=== PATIENT | male | born 1955 | race Caucasian/White ===

== ENCOUNTER → 2023-08-14 | Outpatient (REF) | payer MEDICARE ==
[2023-08-14 10:18] LABS: BASOPHILS % 0.6 % (0.0-1.0); EOSINOPHILS # (AUTO) 0.1 (0.0-0.4); EOSINOPHILS % 2.1 % (0.0-6.0); HEMATOCRIT 33.3 % (38.2-49.6); HEMOGLOBIN 10.9 g/dL (14.0-18.0); LYMPHOCYTES % 28.8 % (18.0-39.1); MEAN CORPUSCULAR HEMOGLOBIN 26.6 pg (28-32); MEAN CORPUSCULAR HGB CONC 32.7 g/dL (31-35); MEAN CORPUSCULAR VOLUME 81.2 fL (81-99); MONOCYTES # (AUTO) 0.2 (0.2-0.8); MONOCYTES % 6.8 % (4.4-11.3); NEUTROPHILS # (AUTO) 2.1 (2.1-6.9); NEUTROPHILS % 61.4 % (38.7-80.0); RED CELL DISTRIBUTION WIDTH 16.5 % (11.7-14.4); WHITE BLOOD COUNT 3.37 x10e3/uL (4.8-10.8)
[2023-08-14 10:40] LABS: INR 3.07; PROTHROMBIN TIME 33.6 seconds (11.9-14.5)
[2023-08-14 10:47] LABS: PLATELET COUNT 75 x10e3/uL (140-360)
== END ==
LOC: US 09:25
PROVIDERS: ATTEND Nurse Practitioner Family
DX: R06.02 Shortness of breath (principal); J90 Pleural effusion, not elsewhere classified; I50.9 Heart failure, unspecified
CPT/HCPCS: 32555; 36415; 71045; 85025; 85610; 85730

== ENCOUNTER → 2023-08-23 | Outpatient (REF) | payer MEDICARE ==
[~2023-08-23] MED LIST: ALBUTEROL SULF 0.083% NEB SOLN 3 ML NEB NEB PRN; ALBUTEROL SULF 0.083% NEB SOLN 3 ML NEB NEB SCH
== END ==
LOC: RESP 08:49 → EDSTATUS 09:00
PROVIDERS: ATTEND Internal Medicine Critical Care Medicine
DX: R06.02 Shortness of breath (principal); J90 Pleural effusion, not elsewhere classified; I50.9 Heart failure, unspecified; R05.3 Chronic cough
CPT/HCPCS: 94060; 94640; 94727; 94729

== ENCOUNTER 2024-02-11 14:41 | Inpatient (IN) | payer MEDICARE ==
[~2024-02-11] VITALS: Ht 167.6 cm; Wt 95.3 kg
[2024-02-11 15:00] LABS: BASOPHILS % 0.4 % (0.0-1.0); EOSINOPHILS # (AUTO) 0.1 (0.0-0.4); EOSINOPHILS % 1.6 % (0.0-6.0); HEMATOCRIT 38.1 % (38.2-49.6); HEMOGLOBIN 12.5 g/dL (14.0-18.0); LYMPHOCYTES # (AUTO) 1.2 (1.0-3.2); LYMPHOCYTES % 24.9 % (18.0-39.1); MEAN CORPUSCULAR HEMOGLOBIN 29.1 pg (28-32); MEAN CORPUSCULAR HGB CONC 32.8 g/dL (31-35); MEAN CORPUSCULAR VOLUME 88.6 fL (81-99); MONOCYTES # (AUTO) 0.3 (0.2-0.8); MONOCYTES % 6.1 % (4.4-11.3); NEUTROPHILS # (AUTO) 3.3 (2.1-6.9); NEUTROPHILS % 66.8 % (38.7-80.0); PLATELET COUNT 91 x10e3/uL (140-360); WHITE BLOOD COUNT 4.93 x10e3/uL (4.8-10.8)
[2024-02-11 15:18] LABS: ANION GAP 18.3 mmol/L (8-16); BILIRUBIN,TOTAL 1.3 mg/dL (0.2-1.2); CALCIUM 9.6 mg/dL (8.4-10.2); CREATININE, SERUM 2.06 mg/dL (0.72-1.25); POTASSIUM 4.3 mmol/L (3.5-5.1); TOTAL PROTEIN 7.9 g/dL (6.5-8.1)
[2024-02-11 15:24] LABS: TROPONIN I 0.022 ng/mL (0-0.300)
[2024-02-11 16:05] LABS: INR 1.04; PROTHROMBIN TIME 13.8 seconds (11.9-14.5)
[2024-02-11] MEDS ORDERED: ONDANSETRON HCL INJ 2MG/ML 2ML 2 MG/ML VIAL IV PRN (16:30)
[2024-02-11 17:00] VITALS: PULSE 94; RESP 18; O2SAT 96
[2024-02-11 17:40] VITALS: BP 158/84; PULSE 95; RESP 21; TEMP 98.4; O2SAT 99
[2024-02-11 20:00] VITALS: BP 155/75; PULSE 85; RESP 18; TEMP 98.3; O2SAT 99
[2024-02-11] MEDS ORDERED: ACETAMINOPHEN 325 MG TAB PO PRN (21:15)
[2024-02-11] MEDS ORDERED: METOPROLOL TARTRATE INJ 1 MG/ML VIAL IV PRN (21:15)
[2024-02-11] MEDS ORDERED: POLYETHYLENE GLYCOL 3350 17 GM PACK PO PRN (21:15)
[2024-02-11] MEDS ORDERED: PLAVIX75 MG PO (21:20)
[2024-02-11] MEDS ORDERED: FINASTERIDE5 MG PO (21:20)
[2024-02-11] MEDS ORDERED: NEURONTIN100 MG PO (21:20)
[2024-02-11] MEDS ORDERED: ALLOPURINOL300 MG PO (21:20)
[2024-02-11] MEDS ORDERED: FLOMAX0.4 MG PO (21:20)
[2024-02-11] MEDS ORDERED: ASPIRIN81 MG PO (21:20)
[2024-02-11] MEDS ORDERED: GLIPIZIDE5 MG PO (21:20)
[2024-02-11] MEDS ORDERED: FUROSEMIDE40 MG PO (21:20)
[2024-02-11] MEDS ORDERED: LISINOPRIL5 MG PO (21:20)
[2024-02-11 21:45] VITALS: BP 155/75; PULSE 85; RESP 18; TEMP 98.3; O2SAT 99
[2024-02-12] VITALS: BP 159/78; PULSE 80; RESP 18; TEMP 98.2; O2SAT 98
[2024-02-12 02:05] LABS: TROPONIN I 0.025 ng/mL (0-0.300)
[2024-02-12 04:00] VITALS: BP 155/71; PULSE 83; RESP 18; TEMP 98.6; O2SAT 99
[2024-02-12 05:40] LABS: BASOPHILS % 0.7 % (0.0-1.0); EOSINOPHILS # (AUTO) 0.1 (0.0-0.4); EOSINOPHILS % 2.4 % (0.0-6.0); HEMATOCRIT 34.1 % (38.2-49.6); HEMOGLOBIN 11.3 g/dL (14.0-18.0); LYMPHOCYTES # (AUTO) 1.3 (1.0-3.2); LYMPHOCYTES % 24.3 % (18.0-39.1); MEAN CORPUSCULAR HEMOGLOBIN 29.5 pg (28-32); MEAN CORPUSCULAR HGB CONC 33.1 g/dL (31-35); MONOCYTES # (AUTO) 0.4 (0.2-0.8); NEUTROPHILS # (AUTO) 3.6 (2.1-6.9); NEUTROPHILS % 64.4 % (38.7-80.0); PLATELET COUNT 92 x10e3/uL (140-360); RED BLOOD COUNT 3.83 x10e6/uL (4.3-5.7); RED CELL DISTRIBUTION WIDTH 14.8 % (11.7-14.4); WHITE BLOOD COUNT 5.51 x10e3/uL (4.8-10.8)
[2024-02-12 06:16] LABS: ALBUMIN 3.3 g/dL (3.5-5.0); ANION GAP 14.9 mmol/L (8-16); BILIRUBIN,TOTAL 1.1 mg/dL (0.2-1.2); CALCIUM 8.9 mg/dL (8.4-10.2); CREATININE, SERUM 2.07 mg/dL (0.72-1.25); POTASSIUM 3.9 mmol/L (3.5-5.1); TOTAL PROTEIN 6.6 g/dL (6.5-8.1)
[2024-02-12 06:35] LABS: CHOL/HDL RATIO 4.6 (3.9-4.7); PHOSPHORUS 3.2 MG/DL (2.3-4.7)
[2024-02-12 06:58] LABS: FREE T4 (FREE THYROXINE) 1.1 ng/dL (0.8-1.8); THYROID STIMULATING HORMONE 1.202 uIU/mL (0.350-4.940)
[2024-02-12 07:05] LABS: TROPONIN I 0.024 ng/mL (0-0.300)
[2024-02-12 07:10] VITALS: PULSE 84; RESP 18; O2SAT 95
[2024-02-12] MEDS ORDERED: FAMOTIDINE 20 MG TAB PO SCH (07:30)
[2024-02-12 08:00] VITALS: BP 153/75; PULSE 82; RESP 18; TEMP 98.3; O2SAT 96
[2024-02-12] MEDS: SODIUM CHLORIDE 0.9% 250ML 250 ML ONE (08:53)
[2024-02-12] MEDS: LISINOPRIL 2.5 MG TAB PO SCH (11:44)
[2024-02-12] MEDS: FINASTERIDE 5 MG TAB PO SCH (11:45)
[2024-02-12] MEDS: ASPIRIN 81 MG CHEW TAB PO SCH (11:45)
[2024-02-12] MEDS: GLIPIZIDE 5 MG TAB PO SCH (11:45)
[2024-02-12] MEDS: DOCUSATE SODIUM 100 MG CAP PO SCH (11:45)
[2024-02-12] MEDS: TAMSULOSIN HCL 0.4 MG CAP PO SCH (11:45)
[2024-02-12] MEDS: GABAPENTIN 100 MG CAP PO SCH (11:45)
[2024-02-12] MEDS: FUROSEMIDE 40 MG TAB PO SCH (11:45)
[2024-02-12] MEDS: FAMOTIDINE 20 MG TAB PO SCH (11:46)
[2024-02-12] MEDS: ALLOPURINOL 300 MG TAB PO SCH (11:46)
[2024-02-12] MEDS: CLOPIDOGREL BISULFATE 75 MG TAB PO SCH (11:46)
[2024-02-12 12:00] VITALS: BP 166/73; PULSE 89; RESP 21; TEMP 97.9; O2SAT 100
[2024-02-12] MEDS ORDERED: ONDANSETRON HCL 4 MG ORAL DISINTEGRATING TAB PO PRN (13:15)
[2024-02-12] MEDS ORDERED: AZITHROMYCIN 250 MG TAB PO SCH (14:00)
== END 2024-02-12 13:35 | disposition home or self-care (01) | DRG 291 ==
LOC: ER 14:53 → ERHOLD 16:26 → MED/SURG2 18:13
PROVIDERS: ADMIT Internal Medicine; ATTEND Internal Medicine
PROC: 0W993ZX Drainage of Right Pleural Cavity, Percutaneous Approach, Diagnostic (ICD-10-PCS; principal; 2024-02-11)
DX: I13.0 Hypertensive heart and chronic kidney disease with heart failure and stage 1 through stage 4 chronic kidney disease, or unspecified chronic kidney disease (principal); I50.31 Acute diastolic (congestive) heart failure; J90 Pleural effusion, not elsewhere classified; I48.91 Unspecified atrial fibrillation; Z95.820 Peripheral vascular angioplasty status with implants and grafts; E66.9 Obesity, unspecified; N28.9 Disorder of kidney and ureter, unspecified; Z11.52 Encounter for screening for COVID-19; E11.40 Type 2 diabetes mellitus with diabetic neuropathy, unspecified; E11.22 Type 2 diabetes mellitus with diabetic chronic kidney disease; N18.30 Chronic kidney disease, stage 3 unspecified; Z82.49 Family history of ischemic heart disease and other diseases of the circulatory system; Z83.3 Family history of diabetes mellitus; Z88.8 Allergy status to other drugs, medicaments and biological substances; Z79.84 Long term (current) use of oral hypoglycemic drugs; Z79.82 Long term (current) use of aspirin; Z79.02 Long term (current) use of antithrombotics/antiplatelets; I73.9 Peripheral vascular disease, unspecified; D69.6 Thrombocytopenia, unspecified; D63.1 Anemia in chronic kidney disease; R74.01 Elevation of levels of liver transaminase levels; E80.6 Other disorders of bilirubin metabolism; I44.0 Atrioventricular block, first degree; R53.1 Weakness
CPT/HCPCS: 32555; 36415; 71045; 74470; 76604; 80053; 80061; 82550; 82948; 83036; 83735; 83880; 84100; 84439; 84443; 84484; 85025; 85610; 87040; 87400; 93005; 94799; 99284; J0696; J7050; U0002

== ENCOUNTER 2024-03-31 13:29 | Outpatient (RCR) | payer MEDICARE ==
[~2024-03-31 13:29] MED LIST changes: -ALBUTEROL SULF 0.083% NEB SOLN 3 ML NEB NEB PRN; -ALBUTEROL SULF 0.083% NEB SOLN 3 ML NEB NEB SCH; +ALLOPURINOL300 MG PO; +ASPIRIN81 MG PO; +FINASTERIDE5 MG PO; +FLOMAX0.4 MG PO; +FUROSEMIDE40 MG PO; +GLIPIZIDE5 MG PO; +LISINOPRIL5 MG PO; +NEURONTIN100 MG PO; +PLAVIX75 MG PO
== END 2024-04-27 ==
LOC: RESP 13:29
PROVIDERS: ATTEND Family Medicine
DX: R06.02 Shortness of breath (principal); R60.9 Edema, unspecified; I10 Essential (primary) hypertension; I48.91 Unspecified atrial fibrillation
CPT/HCPCS: 94626 ×8; G0238 ×8

== ENCOUNTER 2024-04-28 13:51 | Outpatient (RCR) | payer MEDICARE | END 2024-05-28 | LOC: RESP 13:51 | PROVIDERS: ATTEND Family Medicine | DX: R06.02 Shortness of breath (principal); R60.9 Edema, unspecified; I10 Essential (primary) hypertension; I48.91 Unspecified atrial fibrillation | CPT/HCPCS: 94626 ×6; G0238 ×6 ==

== ENCOUNTER 2024-06-19 13:00 | Outpatient (RCR) | payer MEDICARE | END 2024-06-28 | LOC: RESP 13:00 | PROVIDERS: ATTEND Family Medicine | DX: R60.9 Edema, unspecified (principal); R06.02 Shortness of breath; I10 Essential (primary) hypertension; I48.91 Unspecified atrial fibrillation | CPT/HCPCS: 94626 ×5; G0238 ×5 ==

== ENCOUNTER → 2024-08-06 | Outpatient (REF) | payer MEDICARE | LOC: US 12:13 | PROVIDERS: ATTEND Internal Medicine Gastroenterology | DX: R74.8 Abnormal levels of other serum enzymes (principal) | CPT/HCPCS: 76705 ==

== ENCOUNTER → 2024-09-09 | Day surgery (SDC) | payer MEDICARE ==
[2024-09-03 16:02] LABS: BASOPHILS % 0.6 % (0.0-1.0); EOSINOPHILS # (AUTO) 0.2 (0.0-0.4); EOSINOPHILS % 3.4 % (0.0-6.0); HEMATOCRIT 37.5 % (38.2-49.6); HEMOGLOBIN 11.8 g/dL (14.0-18.0); LYMPHOCYTES # (AUTO) 1.2 (1.0-3.2); LYMPHOCYTES % 25.3 % (18.0-39.1); MEAN CORPUSCULAR HEMOGLOBIN 30.3 pg (28-32); MEAN CORPUSCULAR HGB CONC 31.5 g/dL (31-35); MEAN CORPUSCULAR VOLUME 96.4 fL (81-99); MONOCYTES # (AUTO) 0.3 (0.2-0.8); MONOCYTES % 5.9 % (4.4-11.3); NEUTROPHILS # (AUTO) 3.1 (2.1-6.9); NEUTROPHILS % 64.6 % (38.7-80.0); RED BLOOD COUNT 3.89 x10e6/uL (4.3-5.7); RED CELL DISTRIBUTION WIDTH 14.2 % (11.7-14.4); WHITE BLOOD COUNT 4.74 x10e3/uL (4.8-10.8)
[2024-09-03 16:09] LABS: PLATELET COUNT 72 x10e3/uL (140-360)
[~2024-09-09] MED LIST changes: +LIDOCAINE HCL 2% LOCAL INJ 5 ML SDV VIAL INJ ONE; +PROPOFOL IV EMULSION 10 MG/ML 20 ML VIAL ONE
[2024-09-09] MEDS: LACTATED RINGER'S 1,000 ML ONE (10:15)
[2024-09-09 12:56] VITALS: TEMP 97
[2024-09-09 13:30] VITALS: BP 156/85; PULSE 70; RESP 18; O2SAT 97
== END | disposition home or self-care (01) ==
LOC: OR 10:07
PROVIDERS: ATTEND Internal Medicine Gastroenterology
DX: Z12.11 Encounter for screening for malignant neoplasm of colon (principal); D12.0 Benign neoplasm of cecum; D12.2 Benign neoplasm of ascending colon; D12.4 Benign neoplasm of descending colon; K52.9 Noninfective gastroenteritis and colitis, unspecified; K57.30 Diverticulosis of large intestine without perforation or abscess without bleeding; K62.5 Hemorrhage of anus and rectum; K59.00 Constipation, unspecified; K64.8 Other hemorrhoids; G47.33 Obstructive sleep apnea (adult) (pediatric); D64.9 Anemia, unspecified; I48.91 Unspecified atrial fibrillation; I11.0 Hypertensive heart disease with heart failure; I50.9 Heart failure, unspecified; I44.0 Atrioventricular block, first degree; E11.9 Type 2 diabetes mellitus without complications; E66.01 Morbid (severe) obesity due to excess calories; N40.0 Benign prostatic hyperplasia without lower urinary tract symptoms; M10.9 Gout, unspecified; Z91.041 Radiographic dye allergy status; Z88.8 Allergy status to other drugs, medicaments and biological substances; Z01.810 Encounter for preprocedural cardiovascular examination; Z01.812 Encounter for preprocedural laboratory examination; Z79.82 Long term (current) use of aspirin; Z79.84 Long term (current) use of oral hypoglycemic drugs; Z79.899 Other long term (current) drug therapy; Z68.35 Body mass index [BMI] 35.0-35.9, adult
CPT/HCPCS: 36415 ×2; 45384; 45385; 82948; 85025; 88305; 93005; J2003; J2704; J7121

== ENCOUNTER 2024-09-18 12:46 | Observation (INO) | payer MEDICARE ==
[2024-09-18] VITALS (9 sets, daily range): BP systolic 131–170; BP diastolic 62–74; PULSE 80–85; RESP 18–20; TEMP 97.9–99.2; O2SAT 96–100
[~2024-09-18] VITALS: Ht 167.6 cm; Wt 92.5 kg
[~2024-09-18 12:46] MED LIST changes: -LIDOCAINE HCL 2% LOCAL INJ 5 ML SDV VIAL INJ ONE; -PROPOFOL IV EMULSION 10 MG/ML 20 ML VIAL ONE
[2024-09-18] MEDS ORDERED: SODIUM CHLORIDE FLUSH 10 ML SYR IV PRN (13:00)
[2024-09-18 13:06] LABS: BASOPHILS % 0.6 % (0.0-1.0); EOSINOPHILS # (AUTO) 0.1 (0.0-0.4); EOSINOPHILS % 1.5 % (0.0-6.0); HEMOGLOBIN 12.6 g/dL (14.0-18.0); LYMPHOCYTES # (AUTO) 0.9 (1.0-3.2); LYMPHOCYTES % 17.6 % (18.0-39.1); MEAN CORPUSCULAR HEMOGLOBIN 30.4 pg (28-32); MEAN CORPUSCULAR HGB CONC 31.5 g/dL (31-35); MEAN CORPUSCULAR VOLUME 96.6 fL (81-99); MONOCYTES # (AUTO) 0.3 (0.2-0.8); MONOCYTES % 5.2 % (4.4-11.3); NEUTROPHILS # (AUTO) 3.9 (2.1-6.9); NEUTROPHILS % 74.9 % (38.7-80.0); PLATELET COUNT 97 x10e3/uL (140-360); RED BLOOD COUNT 4.14 x10e6/uL (4.3-5.7); RED CELL DISTRIBUTION WIDTH 14.1 % (11.7-14.4); WHITE BLOOD COUNT 5.17 x10e3/uL (4.8-10.8)
[2024-09-18] MEDS: ASPIRIN 81 MG CHEW TAB PO ONE (13:10)
[2024-09-18 13:20] LABS: ALBUMIN 4.1 g/dL (3.5-5.0); ALBUMIN/GLOBULIN RATIO 1.1 (0.8-2.0); ANION GAP 19.8 mmol/L (8-16); BILIRUBIN,TOTAL 1.1 mg/dL (0.2-1.2); CALCIUM 9.5 mg/dL (8.4-10.2); CREATININE, SERUM 1.83 mg/dL (0.72-1.25); POTASSIUM 3.8 mmol/L (3.5-5.1); TOTAL PROTEIN 7.7 g/dL (6.5-8.1)
[2024-09-18 13:26] LABS: TROPONIN I 0.022 ng/mL (0-0.300)
[2024-09-18] MEDS ORDERED: ONDANSETRON HCL INJ 2MG/ML 2ML 2 MG/ML VIAL IV PRN (15:00)
[2024-09-18] MEDS ORDERED: SODIUM CHLORIDE FLUSH 10 ML SYR INJ PRN (15:00)
[2024-09-18] MEDS: FUROSEMIDE INJ 10 MG/ML 4 ML VIAL IV SCH (16:55)
[2024-09-18] MEDS ORDERED: DEXTROSE 50% SYRINGE 50 ML IV PRN (18:00)
[2024-09-18] MEDS: INSULIN LISPRO 100 UNIT/1 ML 3ML VIAL SQ SCH (21:55)
[2024-09-18 23:01] LABS: TROPONIN I 0.031 ng/mL (0-0.300)
[2024-09-19] VITALS (7 sets, daily range): BP systolic 138–172; BP diastolic 54–69; PULSE 60–81; RESP 17–20; TEMP 95.9–99; O2SAT 99–100
[2024-09-19] MEDS: ASPIRIN 81 MG CHEW TAB PO ONE (08:58)
[2024-09-19 09:00] LABS: BASOPHILS % 0.6 % (0.0-1.0); EOSINOPHILS # (AUTO) 0.1 (0.0-0.4); EOSINOPHILS % 2.4 % (0.0-6.0); HEMATOCRIT 37.4 % (38.2-49.6); HEMOGLOBIN 11.9 g/dL (14.0-18.0); LYMPHOCYTES # (AUTO) 1.2 (1.0-3.2); LYMPHOCYTES % 24.6 % (18.0-39.1); MEAN CORPUSCULAR HEMOGLOBIN 30.7 pg (28-32); MEAN CORPUSCULAR HGB CONC 31.8 g/dL (31-35); MEAN CORPUSCULAR VOLUME 96.6 fL (81-99); MONOCYTES # (AUTO) 0.3 (0.2-0.8); MONOCYTES % 6.5 % (4.4-11.3); NEUTROPHILS # (AUTO) 3.2 (2.1-6.9); NEUTROPHILS % 65.7 % (38.7-80.0); PLATELET COUNT 88 x10e3/uL (140-360); RED BLOOD COUNT 3.87 x10e6/uL (4.3-5.7); WHITE BLOOD COUNT 4.92 x10e3/uL (4.8-10.8)
[2024-09-19 09:10] LABS: ALBUMIN 3.7 g/dL (3.5-5.0); ALBUMIN/GLOBULIN RATIO 1.2 (0.8-2.0); ANION GAP 15.6 mmol/L (8-16); BILIRUBIN,TOTAL 1.1 mg/dL (0.2-1.2); CALCIUM 9.4 mg/dL (8.4-10.2); CREATININE, SERUM 1.79 mg/dL (0.72-1.25); POTASSIUM 3.6 mmol/L (3.5-5.1); TOTAL PROTEIN 6.9 g/dL (6.5-8.1)
[2024-09-19 09:15] LABS: TROPONIN I 0.033 ng/mL (0-0.300)
[2024-09-19] MEDS: ASPIRIN 81 MG CHEW TAB PO SCH (09:51)
[2024-09-19] MEDS: FUROSEMIDE INJ 10 MG/ML 4 ML VIAL IV SCH (10:00)
[2024-09-19 17:08] LABS: TROPONIN I 0.028 ng/mL (0-0.300)
[2024-09-20] VITALS: BP 156/73; PULSE 68; RESP 17; TEMP 98.2; O2SAT 98
[2024-09-20 04:00] VITALS: BP 99/63; PULSE 99; RESP 18; TEMP 98.2; O2SAT 100
[2024-09-20 08:45] VITALS: BP 110/62; PULSE 77; RESP 20; TEMP 98.2; O2SAT 99
[2024-09-20 09:00] VITALS: BP 126/73; PULSE 86; RESP 19; TEMP 98.3; O2SAT 100
[2024-09-20 10:55] LABS: CREATININE,URINE RANDOM 110.58 mg/dL (63-166)
[2024-09-20 10:56] LABS: TOTAL PROTEIN, URINE < 6.8 mg/dL (1-14)
[2024-09-20 12:41] VITALS: BP 126/73; PULSE 86; RESP 19; TEMP 98.3; O2SAT 100
[2024-09-20] MEDS ORDERED: BUMETANIDE1 MG PO (16:00)
[2024-09-20 16:40] VITALS: BP 150/64; PULSE 78; RESP 20; TEMP 98.6; O2SAT 98
[2024-09-20] MEDS ORDERED: BUMETANIDE 1 MG TAB PO SCH (17:00)
[2024-09-21] MEDS ORDERED: ZANTAC-360 (FAM20 MG (23:54)
[2024-09-21] MEDS ORDERED: CIALIS5 MG PO (23:54)
[2024-09-21] MEDS ORDERED: ZYRTEC-D TABLE1 EACH PO (23:54)
== END 2024-09-20 17:29 | disposition home or self-care (01) ==
LOC: ER 12:49 → ERHOLD 15:00 → MED/SURG2 16:04
PROVIDERS: ADMIT Internal Medicine; ATTEND Internal Medicine
DX: I13.0 Hypertensive heart and chronic kidney disease with heart failure and stage 1 through stage 4 chronic kidney disease, or unspecified chronic kidney disease (principal); E11.22 Type 2 diabetes mellitus with diabetic chronic kidney disease; I50.43 Acute on chronic combined systolic (congestive) and diastolic (congestive) heart failure; E11.42 Type 2 diabetes mellitus with diabetic polyneuropathy; I48.0 Paroxysmal atrial fibrillation; D63.1 Anemia in chronic kidney disease; R53.81 Other malaise; N17.9 Acute kidney failure, unspecified; N18.32 Chronic kidney disease, stage 3b; Z79.4 Long term (current) use of insulin
CPT/HCPCS: 36415 ×3; 71046 ×2; 76770; 80053 ×2; 82550 ×2; 82570; 82948 ×2; 83880; 84156; 84484 ×2; 85025 ×2; 93005 ×2; 93306; 94760; 99284; G0378 ×3; J1940 ×3

== ENCOUNTER 2024-09-21 16:35 | Inpatient (IN) | payer MEDICARE ==
[2024-09-21] VITALS (10 sets, daily range): BP systolic 82–138; BP diastolic 52–68; PULSE 70–97; RESP 14–20; TEMP 97.8–98.1; O2SAT 99–100
[~2024-09-21] VITALS: Ht 167.6 cm; Wt 90.8 kg
[~2024-09-21 16:35] MED LIST changes: +BUMETANIDE1 MG PO
[2024-09-21 17:03] LABS: BASOPHILS % 0.5 % (0.0-1.0); EOSINOPHILS # (AUTO) 0.1 (0.0-0.4); EOSINOPHILS % 1.2 % (0.0-6.0); HEMATOCRIT 30.1 % (38.2-49.6); HEMOGLOBIN 9.5 g/dL (14.0-18.0); LYMPHOCYTES # (AUTO) 1.2 (1.0-3.2); LYMPHOCYTES % 16.3 % (18.0-39.1); MEAN CORPUSCULAR HEMOGLOBIN 30.6 pg (28-32); MEAN CORPUSCULAR HGB CONC 31.6 g/dL (31-35); MEAN CORPUSCULAR VOLUME 97.1 fL (81-99); MONOCYTES # (AUTO) 0.5 (0.2-0.8); MONOCYTES % 5.9 % (4.4-11.3); NEUTROPHILS # (AUTO) 5.8 (2.1-6.9); NEUTROPHILS % 75.7 % (38.7-80.0); PLATELET COUNT 116 x10e3/uL (140-360); RED CELL DISTRIBUTION WIDTH 14.1 % (11.7-14.4); WHITE BLOOD COUNT 7.63 x10e3/uL (4.8-10.8)
[2024-09-21 17:17] LABS: INR 0.99; PROTHROMBIN TIME 13.7 seconds (11.9-14.5)
[2024-09-21 17:18] LABS: PARTIAL THROMBOPLASTIN TIME 36.6 seconds (23.8-35.5)
[2024-09-21 17:30] LABS: ALBUMIN 3.4 g/dL (3.5-5.0); ALBUMIN/GLOBULIN RATIO 1.3 (0.8-2.0); ANION GAP 20.3 mmol/L (8-16); BILIRUBIN,TOTAL 0.5 mg/dL (0.2-1.2); CALCIUM 8.6 mg/dL (8.4-10.2); CREATININE, SERUM 2.3 mg/dL (0.72-1.25); POTASSIUM 4.3 mmol/L (3.5-5.1); TOTAL PROTEIN 6.1 g/dL (6.5-8.1)
[2024-09-21] MEDS: SODIUM CHLORIDE 0.9% 500ML 500 ML IV ONE (17:33)
[2024-09-21 17:37] LABS: TROPONIN I 0.024 ng/mL (0-0.300)
[2024-09-21] MEDS ORDERED: SODIUM CHLORIDE 0.9% 500ML 500 ML IV ONE (17:45)
[2024-09-21 18:46] LABS: BASOPHILS % 0.3 % (0.0-1.0); EOSINOPHILS % 0.5 % (0.0-6.0); HEMATOCRIT 28.6 % (38.2-49.6); LYMPHOCYTES # (AUTO) 0.9 (1.0-3.2); LYMPHOCYTES % 13.7 % (18.0-39.1); MEAN CORPUSCULAR HEMOGLOBIN 30.3 pg (28-32); MEAN CORPUSCULAR HGB CONC 31.5 g/dL (31-35); MEAN CORPUSCULAR VOLUME 96.3 fL (81-99); MONOCYTES # (AUTO) 0.3 (0.2-0.8); MONOCYTES % 4.6 % (4.4-11.3); NEUTROPHILS # (AUTO) 5.3 (2.1-6.9); NEUTROPHILS % 80.6 % (38.7-80.0); PLATELET COUNT 114 x10e3/uL (140-360); RED BLOOD COUNT 2.97 x10e6/uL (4.3-5.7); WHITE BLOOD COUNT 6.59 x10e3/uL (4.8-10.8)
[2024-09-21] MEDS: SODIUM CHLORIDE 0.9% 1000ML 1,000 ML IV STA (18:57)
[2024-09-21] MEDS ORDERED: DEXTROSE 50% SYRINGE 50 ML IV PRN (19:00)
[2024-09-21] MEDS: SODIUM CHLORIDE 0.9% 1000ML 1,000 ML IV SCH (21:39)
[2024-09-21] MEDS: INSULIN REGULAR, HUMAN 100 UNIT/1 ML SQ SCH (21:41)
[2024-09-21 21:45] LABS: BACTERIA,URINE FEW /HPF; BILIRUBIN,URINE NEGATIVE (NEGATIVE); CLARITY,URINE CLEAR (CLEAR); COLOR,URINE YELLOW (YELLOW); GLUCOSE, URINE NEGATIVE (NEGATIVE); KETONES,URINE NEGATIVE (NEGATIVE); LEUKOCYTE ESTERASE ,URINE NEGATIVE (NEGATIVE); NITRITE,URINE NEGATIVE (NEGATIVE); PH,URINE 5.5 (5 - 7); PROTEIN,URINE DIPSTICK NEGATIVE (NEGATIVE); RBC,URINE 0-5 /HPF (0-5); URINE UROBILINOGEN 0.2 mg/dL (0.2 - 1); WBC,URINE (MAN) 0-5 /HPF (0-5)
[2024-09-21 21:46] LABS: EPITHELIAL CELLS,URINE FEW /LPF
[2024-09-21 21:56] LABS: TRANSITIONAL EPI CELLS,URINE FEW
[2024-09-21 23:54] LABS: TROPONIN I 0.023 ng/mL (0-0.300)
[2024-09-21] MEDS ORDERED: ZANTAC-360 (FAM20 MG (23:54)
[2024-09-21] MEDS ORDERED: CIALIS5 MG PO (23:54)
[2024-09-21] MEDS ORDERED: ZYRTEC-D TABLE1 EACH PO (23:54)
[2024-09-22] VITALS (39 sets, daily range): BP systolic 62–177; BP diastolic 40–92; PULSE 58–122; RESP 7–27; TEMP 97.7–98.2; O2SAT 95–100
[2024-09-22 07:24] LABS: BASOPHILS % 0.5 % (0.0-1.0); EOSINOPHILS # (AUTO) 0.1 (0.0-0.4); EOSINOPHILS % 2.1 % (0.0-6.0); HEMATOCRIT 27.8 % (38.2-49.6); LYMPHOCYTES # (AUTO) 1.6 (1.0-3.2); MEAN CORPUSCULAR HEMOGLOBIN 30.7 pg (28-32); MEAN CORPUSCULAR HGB CONC 32.4 g/dL (31-35); MEAN CORPUSCULAR VOLUME 94.9 fL (81-99); MONOCYTES # (AUTO) 0.4 (0.2-0.8); MONOCYTES % 6.4 % (4.4-11.3); NEUTROPHILS # (AUTO) 4.1 (2.1-6.9); NEUTROPHILS % 65.5 % (38.7-80.0); PLATELET COUNT 114 x10e3/uL (140-360); RED BLOOD COUNT 2.93 x10e6/uL (4.3-5.7); RED CELL DISTRIBUTION WIDTH 14.3 % (11.7-14.4); WHITE BLOOD COUNT 6.21 x10e3/uL (4.8-10.8)
[2024-09-22 07:51] LABS: ALBUMIN 3.6 g/dL (3.5-5.0); ALBUMIN/GLOBULIN RATIO 1.3 (0.8-2.0); ANION GAP 17.2 mmol/L (8-16); BILIRUBIN,TOTAL 0.6 mg/dL (0.2-1.2); CALCIUM 8.8 mg/dL (8.4-10.2); CREATININE, SERUM 2.05 mg/dL (0.72-1.25); POTASSIUM 4.2 mmol/L (3.5-5.1); TOTAL PROTEIN 6.3 g/dL (6.5-8.1)
[2024-09-22 08:12] LABS: TROPONIN I 0.025 ng/mL (0-0.300)
[2024-09-22] MEDS: GABAPENTIN 100 MG CAP PO SCH (09:53)
[2024-09-22] MEDS: TAMSULOSIN HCL 0.4 MG CAP PO SCH (09:53)
[2024-09-22] MEDS: ASPIRIN 81 MG CHEW TAB PO SCH (09:53)
[2024-09-22] MEDS: FINASTERIDE 5 MG TAB PO SCH (09:53)
[2024-09-22] MEDS: PEG (High)/E-LYTE SOLN 4,000 ML BTL PO ONE (17:43)
[2024-09-22 23:07] LABS: HEMATOCRIT 26.8 % (38.2-49.6); HEMOGLOBIN 8.3 g/dL (14.0-18.0)
[2024-09-22 23:22] LABS: ANION GAP 14.5 mmol/L (8-16); CREATININE, SERUM 1.88 mg/dL (0.72-1.25); POTASSIUM 4.5 mmol/L (3.5-5.1)
[2024-09-23] VITALS (20 sets, daily range): BP systolic 139–179; BP diastolic 48–81; PULSE 74–92; RESP 3–24; TEMP 97.7–98.5; O2SAT 95–100
[2024-09-23 07:02] LABS: BASOPHILS % 0.7 % (0.0-1.0); EOSINOPHILS # (AUTO) 0.1 (0.0-0.4); EOSINOPHILS % 2.1 % (0.0-6.0); HEMATOCRIT 24.8 % (38.2-49.6); LYMPHOCYTES # (AUTO) 1.2 (1.0-3.2); LYMPHOCYTES % 29.5 % (18.0-39.1); MEAN CORPUSCULAR HEMOGLOBIN 30.8 pg (28-32); MONOCYTES # (AUTO) 0.3 (0.2-0.8); MONOCYTES % 6.4 % (4.4-11.3); NEUTROPHILS # (AUTO) 2.6 (2.1-6.9); NEUTROPHILS % 60.8 % (38.7-80.0); PLATELET COUNT 100 x10e3/uL (140-360)
[2024-09-23 07:11] LABS: INR 0.97; PROTHROMBIN TIME 13.5 seconds (11.9-14.5)
[2024-09-23 07:12] LABS: PARTIAL THROMBOPLASTIN TIME 29.7 seconds (23.8-35.5)
[2024-09-23 07:14] LABS: HEMOGLOBIN 7.7 g/dL (14.0-18.0); MEAN CORPUSCULAR VOLUME 99.2 fL (81-99)
[2024-09-23 07:30] LABS: ALBUMIN 3.3 g/dL (3.5-5.0); ALBUMIN/GLOBULIN RATIO 1.4 (0.8-2.0); ANION GAP 16.3 mmol/L (8-16); BILIRUBIN,TOTAL 0.5 mg/dL (0.2-1.2); CALCIUM 8.8 mg/dL (8.4-10.2); CREATININE, SERUM 1.57 mg/dL (0.72-1.25); POTASSIUM 4.3 mmol/L (3.5-5.1); TOTAL PROTEIN 5.7 g/dL (6.5-8.1)
[2024-09-23] MEDS: MUPIROCIN 2% OINT 22 GM TUBE TOP SCH (09:00)
[2024-09-23 11:47] LABS: HEMATOCRIT 26.8 % (38.2-49.6); HEMOGLOBIN 8.2 g/dL (14.0-18.0)
[2024-09-23] MEDS ORDERED: PROPOFOL IV EMULSION 50 ML IV ONE (13:32)
[2024-09-23] MEDS ORDERED: LIDOCAINE HCL 2% LOCAL INJ 5 ML SDV VIAL INJ ONE (13:32)
[2024-09-23] MEDS ORDERED: FENTANYL CITRATE/PF 100MCG/2 ML INJ ONE (13:40)
[2024-09-23] MEDS ORDERED: EPINEPHRINE HCL 1:1000 1ML 1 MG/ML AMP ONE (14:00)
[2024-09-23] MEDS ORDERED: ONDANSETRON HCL INJ 2MG/ML 2ML 2 MG/ML VIAL ONE (15:05)
[2024-09-23 19:23] LABS: HEMATOCRIT 24.7 % (38.2-49.6); HEMOGLOBIN 7.7 g/dL (14.0-18.0)
[2024-09-23 20:23] LABS: BILIRUBIN,URINE NEGATIVE (NEGATIVE); CLARITY,URINE CLEAR (CLEAR); COLOR,URINE YELLOW (YELLOW); GLUCOSE, URINE NEGATIVE (NEGATIVE); KETONES,URINE NEGATIVE (NEGATIVE); LEUKOCYTE ESTERASE ,URINE NEGATIVE (NEGATIVE); NITRITE,URINE NEGATIVE (NEGATIVE); PH,URINE 7 (5 - 7); PROTEIN,URINE DIPSTICK NEGATIVE (NEGATIVE); URINE UROBILINOGEN 0.2 mg/dL (0.2 - 1)
[2024-09-23 20:37] LABS: BACTERIA,URINE RARE /HPF
[2024-09-23] MEDS ORDERED: ACETAMINOPHEN 650 MG SUPP PR PRN (21:15)
[2024-09-23] MEDS: IRON SUCROSE 100 MG in SODIUM CHLORIDE 0.9% 100 ML IV SCH (21:25)
[2024-09-24] VITALS (15 sets, daily range): BP systolic 122–182; BP diastolic 48–85; PULSE 87–102; RESP 16–29; TEMP 97.6–99.2; O2SAT 96–100
[2024-09-24] MEDS: HYDRALAZINE HCL 20 MG/ML VIAL IV PRN (00:11)
[2024-09-24] MEDS: ONDANSETRON HCL INJ 2MG/ML 2ML 2 MG/ML VIAL IV PRN (00:50)
[2024-09-24 06:34] LABS: HEMATOCRIT 25.8 % (38.2-49.6); HEMOGLOBIN 8.4 g/dL (14.0-18.0)
[2024-09-24 07:03] LABS: ANION GAP 16.5 mmol/L (8-16); CALCIUM 9.1 mg/dL (8.4-10.2); CREATININE, SERUM 1.53 mg/dL (0.72-1.25); POTASSIUM 4.5 mmol/L (3.5-5.1)
[2024-09-24 12:38] LABS: HEMATOCRIT 26.6 % (38.2-49.6); HEMOGLOBIN 8.6 g/dL (14.0-18.0)
[2024-09-24 15:58] LABS: HEMOGLOBIN 8.4 g/dL (14.0-18.0)
[2024-09-24] MEDS ORDERED: ONDANSETRON ODT4 MG PO (16:51)
[2024-09-24] MEDS ORDERED: FEROSUL325 MG PO (16:51)
[2024-09-24] MEDS ORDERED: CEFUROXIME500 MG PO (16:51)
[2024-09-24] MEDS ORDERED: VITAMIN C 500500 MG PO (16:51)
[2024-09-24] MEDS ORDERED: MUPIROCIN22 GM TOP (16:51)
[2024-09-24] MEDS ORDERED: PROTONIX40 MG PO (16:51)
== END 2024-09-24 17:25 | disposition home or self-care (01) | DRG 919 ==
LOC: ER 16:44 → ERHOLD 18:47 → ICU 22:19
PROVIDERS: ADMIT Internal Medicine; ATTEND Internal Medicine
PROC: 0DB68ZX Excision of Stomach, Via Natural or Artificial Opening Endoscopic, Diagnostic (ICD-10-PCS; 2024-09-23)
PROC: 0W3P8ZZ Control Bleeding in Gastrointestinal Tract, Via Natural or Artificial Opening Endoscopic (ICD-10-PCS; principal; 2024-09-23 13:37)
PROC: 0DB98ZX Excision of Duodenum, Via Natural or Artificial Opening Endoscopic, Diagnostic (ICD-10-PCS; 2024-09-23 13:37)
DX: K91.840 Postprocedural hemorrhage of a digestive system organ or structure following a digestive system procedure (principal); I50.33 Acute on chronic diastolic (congestive) heart failure; K63.3 Ulcer of intestine; I13.0 Hypertensive heart and chronic kidney disease with heart failure and stage 1 through stage 4 chronic kidney disease, or unspecified chronic kidney disease; N39.0 Urinary tract infection, site not specified; K92.2 Gastrointestinal hemorrhage, unspecified; B96.20 Unspecified Escherichia coli [E. coli] as the cause of diseases classified elsewhere; E86.1 Hypovolemia; I95.89 Other hypotension; D50.9 Iron deficiency anemia, unspecified; E11.22 Type 2 diabetes mellitus with diabetic chronic kidney disease; N18.30 Chronic kidney disease, stage 3 unspecified; E11.40 Type 2 diabetes mellitus with diabetic neuropathy, unspecified; Z95.820 Peripheral vascular angioplasty status with implants and grafts; I48.0 Paroxysmal atrial fibrillation; K59.00 Constipation, unspecified; K57.30 Diverticulosis of large intestine without perforation or abscess without bleeding; N40.0 Benign prostatic hyperplasia without lower urinary tract symptoms; K44.9 Diaphragmatic hernia without obstruction or gangrene; K29.70 Gastritis, unspecified, without bleeding; E11.51 Type 2 diabetes mellitus with diabetic peripheral angiopathy without gangrene; Z79.4 Long term (current) use of insulin; Z79.899 Other long term (current) drug therapy; Z86.0100 Personal history of colon polyps, unspecified
CPT/HCPCS: 36415; 43239; 45381; 71045; 74176; 80048; 80053; 81001; 82550; 82948; 83605; 83735; 83880; 84484; 85014; 85018; 85025; 85610; 85730; 86850; 86900; 86920; 87040; 87086; 87186; 88305; 88342; 93005; 94799; 96372; 99252; 99284; J0171; J0360; J0696; J1756; J2003; J2405; J2470; J7030; J7040; J7050

== ENCOUNTER → 2024-10-13 | Outpatient (REF) | payer MEDICARE ==
[~2024-10-13] MED LIST changes: +CEFUROXIME500 MG PO; +CIALIS5 MG PO; +FEROSUL325 MG PO; +MUPIROCIN22 GM TOP; +ONDANSETRON ODT4 MG PO; +PROTONIX40 MG PO; +VITAMIN C 500500 MG PO; +ZANTAC-360 (FAM20 MG; +ZYRTEC-D TABLE1 EACH PO
== END ==
LOC: RAD 13:15
PROVIDERS: ATTEND Internal Medicine Critical Care Medicine
DX: R06.02 Shortness of breath (principal); I50.9 Heart failure, unspecified; J90 Pleural effusion, not elsewhere classified
CPT/HCPCS: 71046

== ENCOUNTER → 2024-11-13 | Outpatient (REF) | payer MEDICARE | LOC: RAD 11:59 | PROVIDERS: ATTEND Nurse Practitioner Family | DX: R06.02 Shortness of breath (principal); J90 Pleural effusion, not elsewhere classified | CPT/HCPCS: 71046 ==

== ENCOUNTER → 2024-11-26 | Outpatient (REF) | payer MEDICARE ==
[2024-11-26 13:11] LABS: BASOPHILS % 0.6 % (0.0-1.0); EOSINOPHILS # (AUTO) 0.1 (0.0-0.4); EOSINOPHILS % 1.6 % (0.0-6.0); HEMATOCRIT 38.6 % (38.2-49.6); HEMOGLOBIN 12.4 g/dL (14.0-18.0); LYMPHOCYTES # (AUTO) 1.2 (1.0-3.2); MEAN CORPUSCULAR HEMOGLOBIN 29.5 pg (28-32); MEAN CORPUSCULAR HGB CONC 32.1 g/dL (31-35); MEAN CORPUSCULAR VOLUME 91.7 fL (81-99); MONOCYTES # (AUTO) 0.4 (0.2-0.8); MONOCYTES % 6.8 % (4.4-11.3); NEUTROPHILS # (AUTO) 3.5 (2.1-6.9); NEUTROPHILS % 67.6 % (38.7-80.0); PLATELET COUNT 94 x10e3/uL (140-360); RED BLOOD COUNT 4.21 x10e6/uL (4.3-5.7); RED CELL DISTRIBUTION WIDTH 13.2 % (11.7-14.4); WHITE BLOOD COUNT 5.13 x10e3/uL (4.8-10.8)
[2024-11-26 13:25] LABS: INR 0.91; PROTHROMBIN TIME 12.8 seconds (11.9-14.5)
[2024-11-26 18:01] LABS: BODY FLUID APPEARANCE CLEAR; BODY FLUID COLOR YELLOW; BODY FLUID TYPE PLEURAL
[2024-11-26 18:02] LABS: RBC,BODY FLUID < 2000 cells/uL; WBC,BODY FLUID 304 cells/uL
[2024-11-26 20:22] LABS: LYMPHOCYTES,BODY FLUID 83 %; MONO/MACROPHG,BODY FLUID 8 %; OTHER CELLS,BODY FLUID 9 %; TOTAL CELLS COUNTED (DIFF) 100
[2024-12-01 06:49] LABS: TOTAL PROTEIN,BODY FLUID 3.2 g/dL
== END ==
LOC: US 11:56
PROVIDERS: ATTEND Nurse Practitioner Family
DX: R06.02 Shortness of breath (principal); J90 Pleural effusion, not elsewhere classified
CPT/HCPCS: 32555; 36415; 71045; 82040; 82945; 83615; 84157; 85025; 85610; 85730; 87070; 87205; 88112; 88305; 89051; C1729

== ENCOUNTER → 2024-12-25 | Outpatient (REF) | payer MEDICARE ==
[~2024-12-25] MED LIST changes: +METOPROLOL TART25 MG PO; +NIFEDIPINE ER30 M1 PO; +VITAMIN C500 M2 PO
[2024-12-25 09:39] LABS: BASOPHILS % 0.5 % (0.0-1.0); EOSINOPHILS # (AUTO) 0.1 (0.0-0.4); EOSINOPHILS % 1.7 % (0.0-6.0); HEMATOCRIT 40.1 % (38.2-49.6); HEMOGLOBIN 12.8 g/dL (14.0-18.0); LYMPHOCYTES # (AUTO) 1.6 (1.0-3.2); LYMPHOCYTES % 26.8 % (18.0-39.1); MEAN CORPUSCULAR HEMOGLOBIN 27.6 pg (28-32); MEAN CORPUSCULAR HGB CONC 31.9 g/dL (31-35); MEAN CORPUSCULAR VOLUME 86.6 fL (81-99); MONOCYTES # (AUTO) 0.4 (0.2-0.8); MONOCYTES % 6.2 % (4.4-11.3); NEUTROPHILS # (AUTO) 3.9 (2.1-6.9); NEUTROPHILS % 64.6 % (38.7-80.0); PLATELET COUNT 98 x10e3/uL (140-360); RED BLOOD COUNT 4.63 x10e6/uL (4.3-5.7); RED CELL DISTRIBUTION WIDTH 14.6 % (11.7-14.4); WHITE BLOOD COUNT 5.96 x10e3/uL (4.8-10.8)
[2024-12-25 09:43] LABS: INR 0.99; PARTIAL THROMBOPLASTIN TIME 34.5 seconds (23.8-35.5); PROTHROMBIN TIME 13.7 seconds (11.9-14.5)
[2024-12-25 09:45] LABS: ALBUMIN 3.8 g/dL (3.5-5.0); ALBUMIN/GLOBULIN RATIO 1.2 (0.8-2.0); ANION GAP 15.4 mmol/L (8-16); BILIRUBIN,TOTAL 1.2 mg/dL (0.2-1.2); CALCIUM 9.1 mg/dL (8.4-10.2); CREATININE, SERUM 1.3 mg/dL (0.72-1.25); POTASSIUM 4.4 mmol/L (3.5-5.1); TOTAL PROTEIN 6.9 g/dL (6.5-8.1)
== END ==
LOC: US 08:37
PROVIDERS: ATTEND Nurse Practitioner Family
DX: J90 Pleural effusion, not elsewhere classified (principal)
CPT/HCPCS: 32555; 36415; 71045; 80053; 83615; 85025; 85610; 85730; C1729

== ENCOUNTER 2025-01-06 20:58 | Inpatient (IN) | payer MEDICARE ==
[~2025-01-06] VITALS: Ht 167.6 cm; Wt 91.6 kg
[~2025-01-06 20:58] MED LIST changes: -METOPROLOL TART25 MG PO; -NIFEDIPINE ER30 M1 PO; -VITAMIN C500 M2 PO
[2025-01-06 20:59] VITALS: TEMP 98.4
[2025-01-06 21:28] LABS: BASOPHILS % 0.5 % (0.0-1.0); EOSINOPHILS # (AUTO) 0.1 (0.0-0.4); EOSINOPHILS % 1.1 % (0.0-6.0); LYMPHOCYTES # (AUTO) 1.2 (1.0-3.2); LYMPHOCYTES % 18.9 % (18.0-39.1); MEAN CORPUSCULAR HEMOGLOBIN 27.7 pg (28-32); MEAN CORPUSCULAR HGB CONC 33.3 g/dL (31-35); MONOCYTES # (AUTO) 0.4 (0.2-0.8); NEUTROPHILS # (AUTO) 4.6 (2.1-6.9); NEUTROPHILS % 72.2 % (38.7-80.0); PLATELET COUNT 114 x10e3/uL (140-360); RED CELL DISTRIBUTION WIDTH 14.2 % (11.7-14.4)
[2025-01-06 21:51] LABS: ALBUMIN 3.6 g/dL (3.5-5.0); ANION GAP 17.4 mmol/L (8-16); BILIRUBIN,TOTAL 1.1 mg/dL (0.2-1.2); CALCIUM 8.9 mg/dL (8.4-10.2); CREATININE, SERUM 2.49 mg/dL (0.72-1.25); POTASSIUM 4.4 mmol/L (3.5-5.1); TOTAL PROTEIN 7.2 g/dL (6.5-8.1)
[2025-01-06 21:56] LABS: TROPONIN I 0.03 ng/mL (0-0.300)
[2025-01-06] MEDS: SODIUM CHLORIDE 0.9% 500ML 500 ML IV STA (22:30)
[2025-01-06 22:36] LABS: CORONAVIRUS COVID-19 AG NEGATIVE (NEGATIVE); INFLUENZA A AG NEGATIVE (NEGATIVE); INFLUENZA B AG NEGATIVE (NEGATIVE)
[2025-01-06 23:45] VITALS: PULSE 59; RESP 20; RESP 22; O2SAT 95
[2025-01-07] VITALS (12 sets, daily range): BP systolic 134–161; BP diastolic 57–78; PULSE 58–71; RESP 16–20; TEMP 97.7–99.2; O2SAT 89–100
[2025-01-07] MEDS ORDERED: DEXTROSE 50% SYRINGE 50 ML IV PRN (00:15)
[2025-01-07] MEDS ORDERED: NIFEDIPINE ER30 M1 PO (01:33)
[2025-01-07] MEDS ORDERED: METOPROLOL TART25 MG PO (01:33)
[2025-01-07 06:22] LABS: BASOPHILS % 0.4 % (0.0-1.0); EOSINOPHILS # (AUTO) 0.1 (0.0-0.4); EOSINOPHILS % 1.7 % (0.0-6.0); HEMATOCRIT 36.2 % (38.2-49.6); HEMOGLOBIN 12.2 g/dL (14.0-18.0); LYMPHOCYTES # (AUTO) 1.6 (1.0-3.2); LYMPHOCYTES % 22.7 % (18.0-39.1); MEAN CORPUSCULAR HEMOGLOBIN 27.9 pg (28-32); MEAN CORPUSCULAR HGB CONC 33.7 g/dL (31-35); MEAN CORPUSCULAR VOLUME 82.8 fL (81-99); MONOCYTES # (AUTO) 0.5 (0.2-0.8); MONOCYTES % 6.6 % (4.4-11.3); NEUTROPHILS # (AUTO) 4.8 (2.1-6.9); NEUTROPHILS % 68.2 % (38.7-80.0); PLATELET COUNT 110 x10e3/uL (140-360); RED BLOOD COUNT 4.37 x10e6/uL (4.3-5.7); RED CELL DISTRIBUTION WIDTH 14.2 % (11.7-14.4)
[2025-01-07 06:52] LABS: CALCIUM 8.6 mg/dL (8.4-10.2); CREATININE, SERUM 1.99 mg/dL (0.72-1.25)
[2025-01-07] MEDS: INSULIN REGULAR, HUMAN 100 UNIT/1 ML SQ SCH (08:33)
[2025-01-07] MEDS ORDERED: ONDANSETRON HCL 4 MG ORAL DISINTEGRATING TAB PO PRN (10:45)
[2025-01-07] MEDS: ALLOPURINOL 300 MG TAB PO SCH (11:54)
[2025-01-07] MEDS: TAMSULOSIN HCL 0.4 MG CAP PO SCH (11:54)
[2025-01-07] MEDS: METOPROLOL TARTRATE 25 MG TAB PO SCH (11:55)
[2025-01-07] MEDS: NIFEDIPINE CR 30 MG TAB PO SCH (11:55)
[2025-01-07] MEDS: BUMETANIDE 1 MG TAB PO SCH (17:54)
[2025-01-07] MEDS: PANTOPRAZOLE SODIUM 40 MG SUSPDR.PKT PO SCH (17:54)
[2025-01-07] MEDS: FAMOTIDINE 20 MG TAB PO SCH (17:54)
[2025-01-07] MEDS: GABAPENTIN 100 MG CAP PO SCH (17:54)
[2025-01-07] MEDS: GLIPIZIDE 5 MG TAB PO SCH (17:55)
[2025-01-08] VITALS (10 sets, daily range): BP systolic 116–157; BP diastolic 62–80; PULSE 63–79; RESP 16–20; TEMP 97.9–98.6; O2SAT 93–100
[2025-01-08 05:58] LABS: BASOPHILS % 0.6 % (0.0-1.0); EOSINOPHILS # (AUTO) 0.1 (0.0-0.4); EOSINOPHILS % 1.9 % (0.0-6.0); HEMATOCRIT 38.7 % (38.2-49.6); HEMOGLOBIN 12.5 g/dL (14.0-18.0); LYMPHOCYTES # (AUTO) 1.3 (1.0-3.2); LYMPHOCYTES % 19.3 % (18.0-39.1); MEAN CORPUSCULAR HEMOGLOBIN 27.4 pg (28-32); MEAN CORPUSCULAR HGB CONC 32.3 g/dL (31-35); MEAN CORPUSCULAR VOLUME 84.7 fL (81-99); MONOCYTES # (AUTO) 0.5 (0.2-0.8); MONOCYTES % 6.7 % (4.4-11.3); NEUTROPHILS # (AUTO) 4.8 (2.1-6.9); NEUTROPHILS % 71.2 % (38.7-80.0); PLATELET COUNT 127 x10e3/uL (140-360); RED BLOOD COUNT 4.57 x10e6/uL (4.3-5.7); RED CELL DISTRIBUTION WIDTH 14.1 % (11.7-14.4)
[2025-01-08 06:21] LABS: ANION GAP 15.2 mmol/L (8-16); CALCIUM 8.6 mg/dL (8.4-10.2); CREATININE, SERUM 1.83 mg/dL (0.72-1.25); POTASSIUM 4.2 mmol/L (3.5-5.1)
[2025-01-08] MEDS: FINASTERIDE 5 MG TAB PO SCH (08:32)
[2025-01-08] MEDS: FERROUS SULFATE 325 MG TAB PO SCH (08:33)
[2025-01-08] MEDS: ASPIRIN 81 MG CHEW TAB PO SCH (08:34)
[2025-01-09] VITALS (7 sets, daily range): BP systolic 134–149; BP diastolic 49–70; PULSE 65–86; RESP 18–20; TEMP 97.5–98.4; O2SAT 94–96
[2025-01-09] MEDS ORDERED: VITAMIN C500 M2 PO (13:25)
== END 2025-01-09 14:25 | disposition home or self-care (01) | DRG 291 ==
LOC: ER 21:21 → ERHOLD 23:46 → MED/SURG2 01-07 00:49 → OBSVTOIN 01-08 12:41
PROVIDERS: ADMIT Internal Medicine; ATTEND Internal Medicine
DX: I13.0 Hypertensive heart and chronic kidney disease with heart failure and stage 1 through stage 4 chronic kidney disease, or unspecified chronic kidney disease (principal); I50.33 Acute on chronic diastolic (congestive) heart failure; J96.01 Acute respiratory failure with hypoxia; J98.11 Atelectasis; N17.9 Acute kidney failure, unspecified; D84.821 Immunodeficiency due to drugs; K74.3 Primary biliary cirrhosis; I48.0 Paroxysmal atrial fibrillation; N18.30 Chronic kidney disease, stage 3 unspecified; E11.22 Type 2 diabetes mellitus with diabetic chronic kidney disease; E11.42 Type 2 diabetes mellitus with diabetic polyneuropathy; E11.51 Type 2 diabetes mellitus with diabetic peripheral angiopathy without gangrene; Z95.820 Peripheral vascular angioplasty status with implants and grafts; Z79.84 Long term (current) use of oral hypoglycemic drugs; J44.9 Chronic obstructive pulmonary disease, unspecified; M06.9 Rheumatoid arthritis, unspecified; T39.4X5A Adverse effect of antirheumatics, not elsewhere classified, initial encounter; T50.995A Adverse effect of other drugs, medicaments and biological substances, initial encounter; Y92.009 Unspecified place in unspecified non-institutional (private) residence as the place of occurrence of the external cause; Z11.52 Encounter for screening for COVID-19; Z79.69 Long term (current) use of other immunomodulators and immunosuppressants; Z79.899 Other long term (current) drug therapy; Z79.82 Long term (current) use of aspirin
CPT/HCPCS: 36415; 71045; 80048; 80053; 82948; 83880; 84484; 85025; 93005; 94799; 96372; 99252; 99284; G0378; J7040

== ENCOUNTER → 2025-01-15 | Outpatient (REF) | payer MEDICARE ==
[~2025-01-15] MED LIST changes: +METOPROLOL TART25 MG PO; +NIFEDIPINE ER30 M1 PO; +VITAMIN C500 M2 PO
== END ==
LOC: RAD 12:08
PROVIDERS: ATTEND Nurse Practitioner Family
DX: R06.02 Shortness of breath (principal); J90 Pleural effusion, not elsewhere classified
CPT/HCPCS: 71046

== ENCOUNTER 2025-01-17 10:10 | Observation (INO) | payer MEDICARE ==
[~2025-01-17] VITALS: Ht 167.6 cm; Wt 91.6 kg
[2025-01-17 10:35] LABS: BASOPHILS # (AUTO) 0.1 (0.0-0.1); BASOPHILS % 0.6 % (0.0-1.0); EOSINOPHILS # (AUTO) 0.1 (0.0-0.4); EOSINOPHILS % 1.5 % (0.0-6.0); HEMATOCRIT 36.4 % (38.2-49.6); LYMPHOCYTES # (AUTO) 1.3 (1.0-3.2); LYMPHOCYTES % 16.6 % (18.0-39.1); MEAN CORPUSCULAR HEMOGLOBIN 27.6 pg (28-32); MEAN CORPUSCULAR VOLUME 83.9 fL (81-99); MONOCYTES # (AUTO) 0.5 (0.2-0.8); MONOCYTES % 6.1 % (4.4-11.3); NEUTROPHILS # (AUTO) 5.9 (2.1-6.9); NEUTROPHILS % 74.7 % (38.7-80.0); PLATELET COUNT 167 x10e3/uL (140-360); RED BLOOD COUNT 4.34 x10e6/uL (4.3-5.7); RED CELL DISTRIBUTION WIDTH 15.2 % (11.7-14.4); WHITE BLOOD COUNT 7.93 x10e3/uL (4.8-10.8)
[2025-01-17 10:55] LABS: ALBUMIN 3.8 g/dL (3.5-5.0); ANION GAP 17.9 mmol/L (8-16); CALCIUM 9.3 mg/dL (8.4-10.2); CREATININE, SERUM 2.29 mg/dL (0.72-1.25); POTASSIUM 3.9 mmol/L (3.5-5.1); TOTAL PROTEIN 7.7 g/dL (6.5-8.1); TROPONIN I 0.03 ng/mL (0-0.300)
[2025-01-17] MEDS: FUROSEMIDE INJ 10 MG/ML 4 ML VIAL IV ONE (12:09)
[2025-01-17 13:51] LABS: INR 0.96; PROTHROMBIN TIME 13.4 seconds (11.9-14.5)
[2025-01-17 15:00] VITALS: PULSE 77; RESP 20; TEMP 97.7
[2025-01-17 16:08] VITALS: PULSE 74; RESP 20; O2SAT 96
[2025-01-17] MEDS ORDERED: LIDOCAINE HCL 1% 30ML-PF VIAL ONE (16:41)
[2025-01-17 18:04] VITALS: O2SAT 97
[2025-01-17 19:10] VITALS: PULSE 83; RESP 20; O2SAT 90
[2025-01-17] MEDS ORDERED: DEXTROSE 50% SYRINGE 50 ML IV PRN (19:45)
[2025-01-17] MEDS ORDERED: ONDANSETRON HCL 4 MG ORAL DISINTEGRATING TAB PO PRN (19:45)
[2025-01-17 20:00] VITALS: BP_SYST 143; BP_SYST 145; BP_DIAS 62; PULSE 73; PULSE 98; RESP 20; TEMP 97.8; TEMP 98.2; O2SAT 95; O2SAT 99
[2025-01-17] MEDS: TAMSULOSIN HCL 0.4 MG CAP PO SCH (21:09)
[2025-01-17 22:59] VITALS: BP 143/62; PULSE 73; RESP 20; TEMP 98.2; O2SAT 95
[2025-01-18] VITALS: BP 135/62; PULSE 74; RESP 18; TEMP 98.4; O2SAT 97
[2025-01-18 04:00] VITALS: BP 147/63; PULSE 79; RESP 20; TEMP 98.8; O2SAT 96
[2025-01-18 06:12] VITALS: PULSE 78; RESP 22; O2SAT 95
[2025-01-18 07:02] LABS: BASOPHILS % 0.6 % (0.0-1.0); EOSINOPHILS # (AUTO) 0.1 (0.0-0.4); EOSINOPHILS % 2.1 % (0.0-6.0); HEMATOCRIT 35.6 % (38.2-49.6); HEMOGLOBIN 11.5 g/dL (14.0-18.0); LYMPHOCYTES # (AUTO) 1.1 (1.0-3.2); LYMPHOCYTES % 20.6 % (18.0-39.1); MEAN CORPUSCULAR HGB CONC 32.3 g/dL (31-35); MEAN CORPUSCULAR VOLUME 86.6 fL (81-99); MONOCYTES # (AUTO) 0.3 (0.2-0.8); MONOCYTES % 5.9 % (4.4-11.3); NEUTROPHILS # (AUTO) 3.7 (2.1-6.9); NEUTROPHILS % 70.6 % (38.7-80.0); PLATELET COUNT 151 x10e3/uL (140-360); RED BLOOD COUNT 4.11 x10e6/uL (4.3-5.7); RED CELL DISTRIBUTION WIDTH 15.2 % (11.7-14.4); WHITE BLOOD COUNT 5.25 x10e3/uL (4.8-10.8)
[2025-01-18 07:31] LABS: ALBUMIN 3.2 g/dL (3.5-5.0); ALBUMIN/GLOBULIN RATIO 0.9 (0.8-2.0); ANION GAP 14.9 mmol/L (8-16); BILIRUBIN,TOTAL 0.8 mg/dL (0.2-1.2); CALCIUM 8.7 mg/dL (8.4-10.2); CREATININE, SERUM 1.89 mg/dL (0.72-1.25); MAGNESIUM 2.2 MG/DL (1.3-2.1); POTASSIUM 3.9 mmol/L (3.5-5.1); TOTAL PROTEIN 6.6 g/dL (6.5-8.1)
[2025-01-18 08:00] VITALS: BP 147/63; PULSE 78; RESP 22; TEMP 98.8; O2SAT 95
[2025-01-18 08:33] VITALS: BP 126/62; PULSE 84; RESP 18; TEMP 98.3; O2SAT 94
[2025-01-18] MEDS ORDERED: METOPROLOL TARTRATE 25 MG TAB PO SCH (09:00)
[2025-01-18] MEDS: PANTOPRAZOLE SODIUM 40 MG SUSPDR.PKT PO SCH (09:45)
[2025-01-18] MEDS: GABAPENTIN 100 MG CAP PO SCH (09:45)
[2025-01-18] MEDS: FERROUS SULFATE 325 MG TAB PO SCH (09:46)
[2025-01-18] MEDS: ALLOPURINOL 300 MG TAB PO SCH (09:46)
[2025-01-18] MEDS: BUMETANIDE 1 MG TAB PO SCH (09:46)
[2025-01-18] MEDS: FINASTERIDE 5 MG TAB PO SCH (09:46)
[2025-01-18] MEDS: GLIPIZIDE 5 MG TAB PO SCH (09:47)
[2025-01-18] MEDS: NIFEDIPINE CR 30 MG TAB PO SCH (09:47)
[2025-01-18] MEDS: MUPIROCIN 2% OINT 22 GM TUBE TOP SCH (09:48)
[2025-01-18] MEDS: ASPIRIN 81 MG CHEW TAB PO SCH (09:48)
[2025-01-18 12:01] VITALS: BP 114/65; PULSE 90; RESP 20; TEMP 98.6; O2SAT 100
== END 2025-01-18 13:35 | disposition home or self-care (01) ==
LOC: ER 10:22 → ERHOLD 14:44 → MED/SURG3 18:55
PROVIDERS: ADMIT Internal Medicine; ATTEND Internal Medicine
DX: I13.0 Hypertensive heart and chronic kidney disease with heart failure and stage 1 through stage 4 chronic kidney disease, or unspecified chronic kidney disease (principal); J90 Pleural effusion, not elsewhere classified; E11.22 Type 2 diabetes mellitus with diabetic chronic kidney disease; N18.30 Chronic kidney disease, stage 3 unspecified; I50.9 Heart failure, unspecified; I48.0 Paroxysmal atrial fibrillation; Z79.82 Long term (current) use of aspirin; Z79.84 Long term (current) use of oral hypoglycemic drugs; M06.9 Rheumatoid arthritis, unspecified; E66.9 Obesity, unspecified; Z68.32 Body mass index [BMI] 32.0-32.9, adult; K74.3 Primary biliary cirrhosis
CPT/HCPCS: 32555; 36415 ×2; 71045 ×2; 74470; 80053 ×2; 82948; 83735; 83880; 84484; 85025 ×2; 85610; 93005; 94760; 94799 ×2; 99284; G0378 ×2; J1940; J2003

== ENCOUNTER → 2025-01-30 | Outpatient (REF) | payer MEDICARE | LOC: RAD 11:18 | PROVIDERS: ATTEND Nurse Practitioner Family | DX: R06.02 Shortness of breath (principal); J90 Pleural effusion, not elsewhere classified | CPT/HCPCS: 71046 ==

== ENCOUNTER → 2025-02-16 | Outpatient (REF) | payer MEDICARE ==
[2025-02-16 15:16] LABS: BODY FLUID APPEARANCE SL.CLOUDY; BODY FLUID COLOR YELLOW; BODY FLUID TYPE PLEURAL; RBC,BODY FLUID < 2000 cells/uL; WBC,BODY FLUID 164 cells/uL
[2025-02-16 16:41] LABS: LYMPHOCYTES,BODY FLUID 19 %; MONO/MACROPHG,BODY FLUID 62 %; NEUTROPHILS,BODY FLUID 1 %; TOTAL CELLS COUNTED (DIFF) 100
[2025-02-16 16:42] LABS: OTHER CELLS,BODY FLUID 18 %
[2025-02-17 19:50] LABS: TOTAL PROTEIN,BODY FLUID 3.3 g/dL
== END ==
LOC: US 12:17
PROVIDERS: ATTEND Nurse Practitioner Family
DX: R06.02 Shortness of breath (principal); J98.4 Other disorders of lung; G47.33 Obstructive sleep apnea (adult) (pediatric); J84.9 Interstitial pulmonary disease, unspecified; I50.9 Heart failure, unspecified; J90 Pleural effusion, not elsewhere classified; N18.9 Chronic kidney disease, unspecified; R05.3 Chronic cough; E66.9 Obesity, unspecified; R94.2 Abnormal results of pulmonary function studies
CPT/HCPCS: 32555; 36415; 71045; 82040; 82945; 83615; 84157; 87070; 87205; 88112; 88305; 89051

== ENCOUNTER 2025-02-24 14:00 | Outpatient (RCR) | payer MEDICARE | END 2025-02-25 | LOC: RESP 14:00 | PROVIDERS: ATTEND Family Medicine | DX: J90 Pleural effusion, not elsewhere classified (principal); I50.32 Chronic diastolic (congestive) heart failure; Z98.890 Other specified postprocedural states | CPT/HCPCS: 94626 ×3; 94799; G0238 ×3 ==

== ENCOUNTER → 2025-03-18 | Outpatient (REF) | payer MEDICARE ==
[2025-03-18 10:16] LABS: BASOPHILS # (AUTO) 0.1 (0.0-0.1); EOSINOPHILS # (AUTO) 0.2 (0.0-0.4); EOSINOPHILS % 2.3 % (0.0-6.0); HEMATOCRIT 39.9 % (38.2-49.6); HEMOGLOBIN 12.6 g/dL (14.0-18.0); LYMPHOCYTES # (AUTO) 2.1 (1.0-3.2); LYMPHOCYTES % 30.4 % (18.0-39.1); MEAN CORPUSCULAR HEMOGLOBIN 27.9 pg (28-32); MEAN CORPUSCULAR HGB CONC 31.6 g/dL (31-35); MEAN CORPUSCULAR VOLUME 88.5 fL (81-99); MONOCYTES # (AUTO) 0.4 (0.2-0.8); MONOCYTES % 6.2 % (4.4-11.3); NEUTROPHILS % 58.8 % (38.7-80.0); PLATELET COUNT 107 x10e3/uL (140-360); RED BLOOD COUNT 4.51 x10e6/uL (4.3-5.7); RED CELL DISTRIBUTION WIDTH 15.4 % (11.7-14.4); WHITE BLOOD COUNT 6.82 x10e3/uL (4.8-10.8)
[2025-03-18 10:26] LABS: INR 0.95; PROTHROMBIN TIME 13.6 seconds (11.9-14.5)
[2025-03-18 10:28] LABS: PARTIAL THROMBOPLASTIN TIME 43.2 seconds (23.8-35.5)
[2025-03-18 10:34] LABS: ALBUMIN 3.7 g/dL (3.5-5.0); ANION GAP 16.8 mmol/L (8-16); BILIRUBIN,TOTAL 0.9 mg/dL (0.2-1.2); CALCIUM 8.7 mg/dL (8.4-10.2); CREATININE, SERUM 1.78 mg/dL (0.72-1.25); POTASSIUM 3.8 mmol/L (3.5-5.1); TOTAL PROTEIN 7.3 g/dL (6.5-8.1)
[2025-03-18 15:15] LABS: BODY FLUID TYPE PLEURAL
[2025-03-18 15:16] LABS: BODY FLUID APPEARANCE SL.CLOUDY; BODY FLUID COLOR YELLOW; RBC,BODY FLUID < 2000 cells/uL; WBC,BODY FLUID 185 cells/uL
[2025-03-18 16:10] LABS: LYMPHOCYTES,BODY FLUID 38 %; MONO/MACROPHG,BODY FLUID 30 %; NEUTROPHILS,BODY FLUID 6 %; TOTAL CELLS COUNTED (DIFF) 100
[2025-03-18 16:11] LABS: OTHER CELLS,BODY FLUID 26 %
[2025-03-19 13:49] LABS: TOTAL PROTEIN,BODY FLUID 3.4 g/dL
== END ==
LOC: US 09:39
PROVIDERS: ATTEND Nurse Practitioner Family
DX: R06.02 Shortness of breath (principal); R05.3 Chronic cough; J90 Pleural effusion, not elsewhere classified; J84.9 Interstitial pulmonary disease, unspecified; J98.4 Other disorders of lung; G47.33 Obstructive sleep apnea (adult) (pediatric); R94.2 Abnormal results of pulmonary function studies; N18.9 Chronic kidney disease, unspecified; E66.9 Obesity, unspecified; I50.9 Heart failure, unspecified
CPT/HCPCS: 32555; 36415; 80053; 82945; 83615; 84157; 85025; 85610; 85730; 87070; 87205; 88112; 88305; 89051; C1729; 71045; 82040

== ENCOUNTER 2025-04-21 10:00 | Outpatient (RCR) | payer MEDICARE | END 2025-04-27 | LOC: RESP 10:00 | PROVIDERS: ATTEND Family Medicine | DX: I50.32 Chronic diastolic (congestive) heart failure (principal); Z98.890 Other specified postprocedural states; J90 Pleural effusion, not elsewhere classified | CPT/HCPCS: 94626 ×3; G0238 ×3 ==

== ENCOUNTER → 2025-04-22 | Outpatient (REF) | payer MEDICARE ==
[2025-04-22 09:26] LABS: BASOPHILS % 0.6 % (0.0-1.0); EOSINOPHILS # (AUTO) 0.1 (0.0-0.4); EOSINOPHILS % 2.3 % (0.0-6.0); HEMATOCRIT 37.8 % (38.2-49.6); HEMOGLOBIN 12.3 g/dL (14.0-18.0); LYMPHOCYTES # (AUTO) 1.5 (1.0-3.2); LYMPHOCYTES % 29.3 % (18.0-39.1); MEAN CORPUSCULAR HEMOGLOBIN 28.6 pg (28-32); MEAN CORPUSCULAR HGB CONC 32.5 g/dL (31-35); MEAN CORPUSCULAR VOLUME 87.9 fL (81-99); MONOCYTES # (AUTO) 0.3 (0.2-0.8); MONOCYTES % 5.7 % (4.4-11.3); NEUTROPHILS # (AUTO) 3.2 (2.1-6.9); NEUTROPHILS % 61.9 % (38.7-80.0); PLATELET COUNT 95 x10e3/uL (140-360); RED CELL DISTRIBUTION WIDTH 15.5 % (11.7-14.4); WHITE BLOOD COUNT 5.22 x10e3/uL (4.8-10.8)
[2025-04-22 09:40] LABS: INR 0.9
[2025-04-22 09:41] LABS: PARTIAL THROMBOPLASTIN TIME 40.5 seconds (23.8-35.5)
[2025-04-22 09:53] LABS: ALBUMIN 3.5 g/dL (3.5-5.0); ANION GAP 12.7 mmol/L (8-16); BILIRUBIN,TOTAL 0.8 mg/dL (0.2-1.2); CALCIUM 8.5 mg/dL (8.4-10.2); CREATININE, SERUM 1.28 mg/dL (0.72-1.25); POTASSIUM 3.7 mmol/L (3.5-5.1); TOTAL PROTEIN 6.9 g/dL (6.5-8.1)
[2025-04-22 14:28] LABS: BODY FLUID COLOR YELLOW; BODY FLUID TYPE PLEURAL
[2025-04-22 14:29] LABS: BODY FLUID APPEARANCE CLOUDY; RBC,BODY FLUID < 2000 cells/uL; WBC,BODY FLUID 151 cells/uL
[2025-04-22 14:51] LABS: LYMPHOCYTES,BODY FLUID 44 %; MONO/MACROPHG,BODY FLUID 23 %; NEUTROPHILS,BODY FLUID 20 %; OTHER CELLS,BODY FLUID 13 %; TOTAL CELLS COUNTED (DIFF) 100
[2025-04-24 21:16] LABS: TOTAL PROTEIN,BODY FLUID 3.2 g/dL
== END ==
LOC: US 08:49
PROVIDERS: ATTEND Nurse Practitioner Family
DX: R06.02 Shortness of breath (principal); J90 Pleural effusion, not elsewhere classified; R05.3 Chronic cough; N18.9 Chronic kidney disease, unspecified; I50.9 Heart failure, unspecified; J84.9 Interstitial pulmonary disease, unspecified; G47.33 Obstructive sleep apnea (adult) (pediatric); J98.4 Other disorders of lung; E66.9 Obesity, unspecified; R94.2 Abnormal results of pulmonary function studies
CPT/HCPCS: 32555; 36415; 71045; 80053; 82040; 82945; 83615; 84157; 85025; 85610; 85730; 87070; 87205; 88112; 88305; 88342; 89051; C1729

== ENCOUNTER 2025-04-28 08:00 | Outpatient (RCR) | payer MEDICARE | END 2025-05-28 23:59 | disposition home or self-care (01) | LOC: RESP 08:00 | DX: J90 Pleural effusion, not elsewhere classified (principal); R06.00 Dyspnea, unspecified | CPT/HCPCS: 94626; G0238 ==

== ENCOUNTER → 2025-04-30 | Outpatient (REF) | payer MEDICARE ==
[~2025-04-30] MED LIST changes: +ALBUTEROL SULF 0.083% NEB SOLN 3 ML NEB ONE
== END ==
LOC: EDSTATUS 13:00 → RESP 13:02
DX: I50.9 Heart failure, unspecified (principal); G47.33 Obstructive sleep apnea (adult) (pediatric); N18.9 Chronic kidney disease, unspecified; J84.9 Interstitial pulmonary disease, unspecified; R94.2 Abnormal results of pulmonary function studies; R05.3 Chronic cough; E66.9 Obesity, unspecified
CPT/HCPCS: 94060; 94727; 94729

== ENCOUNTER → 2025-05-06 | Outpatient (REF) | payer MEDICARE ==
[~2025-05-06] MED LIST changes: -ALBUTEROL SULF 0.083% NEB SOLN 3 ML NEB ONE
== END ==
LOC: RAD 11:47
PROVIDERS: ATTEND Nurse Practitioner Family
DX: R06.02 Shortness of breath (principal); J90 Pleural effusion, not elsewhere classified
CPT/HCPCS: 71046

== ENCOUNTER 2025-05-30 14:32 | Emergency (ER) | payer MEDICARE ==
[~2025-05-30] VITALS: Ht 167.6 cm; Wt 85.7 kg
[2025-05-30 14:45] VITALS: PULSE 90; RESP 18; TEMP 98.4
[2025-05-30] MEDS: MINERAL OIL 132 ML BTL PR ONE (16:17)
[2025-05-30 17:19] VITALS: BP 163/73; PULSE 81; RESP 16; TEMP 98.5; O2SAT 95
== END 2025-05-30 17:21 | disposition home or self-care (01) ==
LOC: ER 15:04
DX: K56.41 Fecal impaction (principal); I12.9 Hypertensive chronic kidney disease with stage 1 through stage 4 chronic kidney disease, or unspecified chronic kidney disease; E11.22 Type 2 diabetes mellitus with diabetic chronic kidney disease; N18.9 Chronic kidney disease, unspecified; Z87.09 Personal history of other diseases of the respiratory system; I48.91 Unspecified atrial fibrillation
CPT/HCPCS: 99283